=== PATIENT | male | born 1960 | race Caucasian/White ===

== ENCOUNTER 2016-11-03 10:04 | Inpatient (IN) | payer BC ==
[~2016-11-03] VITALS: Ht 182.9 cm; Wt 74.8 kg
[2016-11-03 10:04] VITALS: BP_SYST 156
[2016-11-03] MEDS ORDERED: NITROGLYCERIN 0.4 MG TAB.SUBL SL ONE ×2 (10:30→12:17)
[2016-11-03 10:44] LABS: BASOPHILS % (AUTO) 0.3 % (0.0-2.0); EOSINOPHILS # (AUTO) 0.1 K/uL (0.0-0.4); EOSINOPHILS % (AUTO) 0.5 % (0.0-4.0); HEMATOCRIT 42.8 % (36-54); HEMOGLOBIN 14.6 g/dL (14.0-18.0); LYMPHOCYTES # (AUTO) 1.6 K/uL (1.0-5.5); LYMPHOCYTES % (AUTO) 13.2 % (20.5-51.5); MEAN CORPUSCULAR HEMOGLOBIN 34 pg (27-31); MEAN CORPUSCULAR HGB CONC 34 % (32-36); MEAN CORPUSCULAR VOLUME 100 fL (79.0-98.0); MONOCYTES # (AUTO) 0.5 K/uL (0.0-1.0); MONOCYTES % (AUTO) 4.2 % (1.7-9.3); NEUTROPHILS # (AUTO) 9.6 K/uL (1.8-7.7); NEUTROPHILS % (AUTO) 81.8 % (40.0-70.0); PLATELET COUNT (AUTO) 344 K/uL (130-430); RED CELL DISTRIBUTION WIDTH 11.6 % (9.0-15.0); WHITE BLOOD COUNT (AUTO) 11.8 K/uL (4.8-10.8)
[2016-11-03 10:51] LABS: CALCIUM 8.7 mg/dL (8.4-11.0); CREATININE 0.86 mg/dL (0.55-1.30); POTASSIUM 4.3 mmol/L (3.5-5.1)
[2016-11-03 11:05] LABS: BILIRUBIN,URINE NEGATIVE (NEGATIVE); BLOOD, URINE 2+ (NEGATIVE); CLARITY/URINE CLEAR (CLEAR); COLOR,URINE YELLOW (YELLOW); GLUCOSE,URINE NEGATIVE (NEGATIVE); KETONES,URINE TRACE (NEGATIVE); LEUKOCYTE ESTERASE ,URINE NEGATIVE (NEGATIVE); NITRITE, URINE NEGATIVE (NEGATIVE); PROTEIN URINE NEGATIVE (NEGATIVE); UROBILINOGEN,URINE 0.2 (0.2-1.0)
[2016-11-03 11:11] LABS: ALBUMIN 3.9 g/dL (3.4-4.8); TOTAL BILIRUBIN 0.3 mg/dL (0.0-1.0)
[2016-11-03 11:12] LABS: BACTERIA,URINE FEW /HPF (None Seen); MUCUS,URINE None Seen /LPF (None Seen); WBC,URINE NONE SEEN /HPF (0-3)
[2016-11-03] MEDS ORDERED: METO50TA7 PO (11:46)
[2016-11-03] MEDS ORDERED: CAT.1 PO (11:46)
[2016-11-03] MEDS: NITROGLYCERIN 0.4 MG TAB.SUBL SL PRN ×3 (12:09→20:44)
[2016-11-03 12:20] VITALS: BP_SYST 159
[2016-11-03 12:40] VITALS: BP_SYST 164
[2016-11-03] MEDS ORDERED: COMMUNICATION ORDER XX ONE (12:45)
[2016-11-03] MEDS ORDERED: ATORVASTATIN 20 MG TABLET PO ONE (13:00)
[2016-11-03] MEDS ORDERED: ENOXAPARIN SODIUM 80 MG/0.8 ML SYRINGE SUBCUT ONE (13:00)
[2016-11-03] MEDS ORDERED: ISOSORBIDE MONONITRATE 30 MG TAB.ER.24H PO ONE (13:00)
[2016-11-03] MEDS ORDERED: LISINOPRIL 10 MG TABLET (PRINIVIL) PO ONE (13:45)
[2016-11-03] MEDS ORDERED: ASPIRIN 325 MG TABLET (ECOTRIN) PO ONE (13:45)
[2016-11-03 13:54] LABS: CHOLESTEROL 200 mg/dL (<200); HDL CHOLESTEROL 63 mg/dL (>45); LDL CHOLESTEROL 126 mg/dL (<100); TRIGLYCERIDES 48 mg/dL (30-150)
[2016-11-03] MEDS ORDERED: LISINOPRIL 10 MG TABLET (PRINIVIL) PO SCH (14:00)
[2016-11-03] MEDS ORDERED: ACETAMINOPHEN 325 MG TABLET PO PRN (16:15)
[2016-11-03 16:20] VITALS: BP_SYST 150
[2016-11-03 17:04] LABS: PROTHROMBIN TIME 10.8 SECS (9.5-12.5)
[2016-11-03 20:00] VITALS: BP_SYST 111
[2016-11-03] MEDS ORDERED: ENOXAPARIN SODIUM 80 MG/0.8 ML SYRINGE SUBCUT SCH (21:00)
[2016-11-04] VITALS: BP_SYST 115
[2016-11-04] MEDS ORDERED: NACL 0.9% 1,000 ML IV SCH (05:00)
[2016-11-04] MEDS ORDERED: ASPIRIN 325 MG TABLET (ECOTRIN) PO SCH (09:00)
[2016-11-04] MEDS ORDERED: LISINOPRIL 10 MG TABLET (PRINIVIL) PO SCH (09:00)
[2016-11-04] MEDS ORDERED: METOPROLOL SUCCINATE 50 MG TAB.SR.24H (TOPROL XL) PO SCH (09:00)
[2016-11-04] MEDS ORDERED: ISOSORBIDE MONONITRATE 30 MG TAB.ER.24H PO SCH (09:00)
[2016-11-04] MEDS ORDERED: ATORVASTATIN 20 MG TABLET PO SCH (09:00)
== END 2016-11-04 07:00 | disposition short-term general hospital (02) | DRG 280 ==
LOC: SED 10:04 → STU 11:36
PROVIDERS: ADMIT Family Medicine; ATTEND Family Medicine
DX: I21.4 Non-ST elevation (NSTEMI) myocardial infarction (principal); I50.21 Acute systolic (congestive) heart failure; I10 Essential (primary) hypertension; F17.210 Nicotine dependence, cigarettes, uncomplicated; Z90.49 Acquired absence of other specified parts of digestive tract; Z71.6 Tobacco abuse counseling
CPT/HCPCS: 36415; 71010; 80053; 80061; 81000-TC; 84484; 85025; 85610-TC; 85730-TC; 93005; 93306; 99285; J1650

== ENCOUNTER 2018-04-29 11:16 | Emergency (ER) | payer BC ==
[~2018-04-29] VITALS: Ht 182.9 cm; Wt 77.1 kg
[~2018-04-29 11:16] MED LIST: CAT.1 PO; METO50TA7 PO
[2018-04-29 11:20] VITALS: BP_SYST 164
[2018-04-29 12:02] LABS: BASOPHILS # (AUTO) 0.1 K/uL (0.0-0.2); BASOPHILS % (AUTO) 0.5 % (0.0-2.0); EOSINOPHILS # (AUTO) 0.2 K/uL (0.0-0.4); EOSINOPHILS % (AUTO) 1.5 % (0.0-4.0); HEMATOCRIT 41.2 % (36-54); HEMOGLOBIN 14.3 g/dL (14.0-18.0); LYMPHOCYTES # (AUTO) 3.6 K/uL (1.0-5.5); LYMPHOCYTES % (AUTO) 32.8 % (20.5-51.5); MEAN CORPUSCULAR HEMOGLOBIN 34 pg (27-31); MEAN CORPUSCULAR HGB CONC 35 % (32-36); MEAN CORPUSCULAR VOLUME 98 fL (79.0-98.0); MONOCYTES # (AUTO) 0.8 K/uL (0.0-1.0); MONOCYTES % (AUTO) 7.4 % (1.7-9.3); NEUTROPHILS # (AUTO) 6.4 K/uL (1.8-7.7); NEUTROPHILS % (AUTO) 57.8 % (40.0-70.0); PLATELET COUNT (AUTO) 352 K/uL (130-430); RED CELL DISTRIBUTION WIDTH 11.8 % (9.0-15.0); WHITE BLOOD COUNT (AUTO) 11.1 K/uL (4.8-10.8)
[2018-04-29 12:06] LABS: CALCIUM 9.2 mg/dL (8.4-11.0); CREATININE 0.77 mg/dL (0.55-1.30); POTASSIUM 4.5 mmol/L (3.5-5.1)
[2018-04-29 12:08] LABS: PROTHROMBIN TIME 9.8 SECS (9.5-12.5)
[2018-04-29 12:11] LABS: ALBUMIN 4.2 g/dL (3.4-4.8); TOTAL BILIRUBIN 0.6 mg/dL (0.0-1.0)
[2018-04-29 13:47] VITALS: BP_SYST 151
== END 2018-04-29 13:46 | disposition home or self-care (01) ==
LOC: SED 11:16
DX: M25.512 Pain in left shoulder (principal); R07.89 Other chest pain; R19.7 Diarrhea, unspecified; I10 Essential (primary) hypertension
CPT/HCPCS: 36415; 71045; 73030; 80053; 84484; 85025; 85610-TC; 85730-TC; 93005; 99284

== ENCOUNTER 2018-08-10 11:12 | Observation (INO) | payer BC ==
[~2018-08-10] VITALS: Ht 182.9 cm; Wt 90.7 kg
[2018-08-10 11:21] VITALS: BP_SYST 178
[2018-08-10 12:05] LABS: BASOPHILS # (AUTO) 0.1 K/uL (0.0-0.2); BASOPHILS % (AUTO) 0.5 % (0.0-2.0); EOSINOPHILS # (AUTO) 0.1 K/uL (0.0-0.4); EOSINOPHILS % (AUTO) 1.4 % (0.0-4.0); HEMATOCRIT 42.5 % (36-54); HEMOGLOBIN 14.6 g/dL (14.0-18.0); LYMPHOCYTES % (AUTO) 29.9 % (20.5-51.5); MEAN CORPUSCULAR HEMOGLOBIN 35 pg (27-31); MEAN CORPUSCULAR HGB CONC 34 % (32-36); MEAN CORPUSCULAR VOLUME 100 fL (79.0-98.0); MONOCYTES # (AUTO) 0.8 K/uL (0.0-1.0); MONOCYTES % (AUTO) 8.2 % (1.7-9.3); NEUTROPHILS # (AUTO) 6.1 K/uL (1.8-7.7); PLATELET COUNT (AUTO) 326 K/uL (130-430); RED BLOOD CELL COUNT(AUTO) 4.24 MIL/uL (4.2-6.2); RED CELL DISTRIBUTION WIDTH 12.6 % (9.0-15.0); WHITE BLOOD COUNT (AUTO) 10.2 K/uL (4.8-10.8)
[2018-08-10 12:21] LABS: CALCIUM 9.4 mg/dL (8.4-11.0); CREATININE 0.8 mg/dL (0.55-1.30); POTASSIUM 4.5 mmol/L (3.5-5.1)
[2018-08-10 12:25] LABS: INR 0.9 (0.80-1.20); PROTHROMBIN TIME 9.7 SECS (9.5-12.5)
[2018-08-10] MEDS ORDERED: NITROGLYCERIN 1 INCH (GM) OINT. TP ONE (12:30)
[2018-08-10 12:32] LABS: TOTAL BILIRUBIN 0.4 mg/dL (0.0-1.0)
[2018-08-10] MEDS ORDERED: TICA90TA PO (12:57)
[2018-08-10] MEDS ORDERED: ASPI-1153 PO (12:57)
[2018-08-10] MEDS ORDERED: LISI-600 PO (12:57)
[2018-08-10 14:29] VITALS: BP_SYST 156
[2018-08-10] MEDS ORDERED: MORPHINE 4 MG/ML INJ. SYRINGE IVP PRN (16:15)
[2018-08-10] MEDS ORDERED: NITROGLYCERIN 0.4 MG TAB.SUBL SL PRN (16:15)
[2018-08-10] MEDS ORDERED: cloNIDine HCL 0.1 MG TABLET PO PRN (16:15)
[2018-08-10 20:20] VITALS: BP_SYST 141
[2018-08-10] MEDS: BRILINTA 60 MG PO SCH (21:00)
[2018-08-10] MEDS: DOXYCYCLINE HYCLATE 100 MG CAPSULE PO SCH (21:09)
[2018-08-11] VITALS: BP_SYST 127
[2018-08-11 06:34] LABS: BASOPHILS # (AUTO) 0.1 K/uL (0.0-0.2); BASOPHILS % (AUTO) 0.6 % (0.0-2.0); EOSINOPHILS # (AUTO) 0.2 K/uL (0.0-0.4); EOSINOPHILS % (AUTO) 2.2 % (0.0-4.0); HEMATOCRIT 39.9 % (36-54); HEMOGLOBIN 13.6 g/dL (14.0-18.0); LYMPHOCYTES % (AUTO) 29.1 % (20.5-51.5); MEAN CORPUSCULAR HEMOGLOBIN 34 pg (27-31); MEAN CORPUSCULAR HGB CONC 34 % (32-36); MEAN CORPUSCULAR VOLUME 100 fL (79.0-98.0); MONOCYTES # (AUTO) 0.9 K/uL (0.0-1.0); MONOCYTES % (AUTO) 8.5 % (1.7-9.3); NEUTROPHILS # (AUTO) 6.2 K/uL (1.8-7.7); NEUTROPHILS % (AUTO) 59.6 % (40.0-70.0); PLATELET COUNT (AUTO) 314 K/uL (130-430); RED BLOOD CELL COUNT(AUTO) 3.99 MIL/uL (4.2-6.2); RED CELL DISTRIBUTION WIDTH 12.6 % (9.0-15.0); WHITE BLOOD COUNT (AUTO) 10.4 K/uL (4.8-10.8)
[2018-08-11 07:13] LABS: ALBUMIN 3.4 g/dL (3.4-4.8); CALCIUM 8.8 mg/dL (8.4-11.0); CREATININE 0.74 mg/dL (0.55-1.30); POTASSIUM 4.1 mmol/L (3.5-5.1); THYROID STIMULATING HORMONE 1.64 uIu/mL (0.34-4.82); TOTAL BILIRUBIN 0.6 mg/dL (0.0-1.0)
[2018-08-11 08:15] VITALS: BP_SYST 131
[2018-08-11] MEDS ORDERED: ASPIRIN 81 MG TABLET(ECOTRIN) PO SCH (09:00)
[2018-08-11] MEDS ORDERED: NON-FORMULARY MEDICATION (Ticagrelor (Brilinta) 90 MG) PO SCH (09:00)
[2018-08-11] MEDS ORDERED: LISINOPRIL 20 MG TABLET PO SCH (09:00)
[2018-08-11] MEDS ORDERED: METOPROLOL SUCCINATE 50 MG TAB.SR.24H (TOPROL XL) PO SCH (09:00)
[2018-08-11] MEDS: DOXYCYCLINE HYCLATE 100 MG CAPSULE PO SCH (09:03)
[2018-08-11] MEDS ORDERED: DOXY100C2 PO (09:31)
[2018-08-11 10:02] VITALS: BP_SYST 124
[2018-08-11] MEDS: BRILINTA 60 MG PO SCH (10:11)
[2018-08-11 10:56] VITALS: BP_SYST 135
== END 2018-08-11 10:23 | disposition home or self-care (01) ==
LOC: SED 11:12 → STU 14:06
PROVIDERS: ADMIT Internal Medicine Cardiovascular Disease; ATTEND Internal Medicine Cardiovascular Disease
DX: R07.89 Other chest pain (principal); J20.9 Acute bronchitis, unspecified; J02.9 Acute pharyngitis, unspecified; I25.10 Atherosclerotic heart disease of native coronary artery without angina pectoris; E78.5 Hyperlipidemia, unspecified; I10 Essential (primary) hypertension; F17.210 Nicotine dependence, cigarettes, uncomplicated; Z95.5 Presence of coronary angioplasty implant and graft; Z82.0 Family history of epilepsy and other diseases of the nervous system; I73.9 Peripheral vascular disease, unspecified; I25.2 Old myocardial infarction; Z79.82 Long term (current) use of aspirin
CPT/HCPCS: 36415 ×2; 71045; 80053 ×2; 80061; 82550; 84443; 84484 ×2; 85025 ×2; 85610; 85730; 93005; 93017; 99285; G0378 ×2

== ENCOUNTER 2019-06-15 10:08 | Emergency (ER) | payer BC ==
[~2019-06-15] VITALS: Ht 182.9 cm; Wt 72.6 kg
[~2019-06-15 10:08] MED LIST changes: +ASPI-1153 PO; +DOXY100C2 PO; +LISI-600 PO; +TICA90TA PO
[2019-06-15 10:28] VITALS: BP_SYST 166
[2019-06-15] MEDS: ONDANSETRON HCL 4 MG/2 ML VIAL IVP ONE (11:15)
[2019-06-15] MEDS: NACL 0.9% 1,000 ML IV ONE (11:18)
[2019-06-15 11:35] LABS: ANION GAP 7 (5-15); CALCIUM 8.4 mg/dL (8.4-11.0); CHLORIDE 99 mmol/L (98-107); CREATININE 0.81 mg/dL (0.55-1.30); GLUCOSE 96 mg/dL (70-99); POTASSIUM 4.6 mmol/L (3.5-5.1); SODIUM SERUM 134 mmol/L (136-145); UREA NITROGEN, BLOOD 11 mg/dL (8-21)
[2019-06-15 11:36] LABS: BASOPHILS % (AUTO) 0.3 % (0.0-2.0); EOSINOPHILS % (AUTO) 0.3 % (0.0-4.0); GFR AFRICAN AMERICAN 125 mL/min (>90); HEMATOCRIT 39.5 % (36-54); HEMOGLOBIN 13.4 g/dL (14.0-18.0); LYMPHOCYTES # (AUTO) 2.3 K/uL (1.0-5.5); LYMPHOCYTES % (AUTO) 30.6 % (20.5-51.5); MEAN CORPUSCULAR HEMOGLOBIN 33 pg (27-31); MEAN CORPUSCULAR HGB CONC 34 % (32-36); MEAN CORPUSCULAR VOLUME 98 fL (79.0-98.0); MONOCYTES # (AUTO) 0.9 K/uL (0.0-1.0); MONOCYTES % (AUTO) 12.1 % (1.7-9.3); NEUTROPHILS # (AUTO) 4.2 K/uL (1.8-7.7); NEUTROPHILS % (AUTO) 56.7 % (40.0-70.0); PLATELET COUNT (AUTO) 294 K/uL (130-430); RED BLOOD CELL COUNT(AUTO) 4.03 MIL/uL (4.2-6.2); RED CELL DISTRIBUTION WIDTH 12.6 % (9.0-15.0); WHITE BLOOD COUNT (AUTO) 7.4 K/uL (4.8-10.8)
[2019-06-15 11:41] LABS: ALANINE AMINOTRANSFERASE 69 U/L (12-78); ALBUMIN 3.3 g/dL (3.4-4.8); ASPARTATE AMINOTRANSFERASE 46 U/L (10-37); TOTAL BILIRUBIN 0.4 mg/dL (0.0-1.0)
[2019-06-15 13:00] VITALS: BP_SYST 134
== END 2019-06-15 13:00 | disposition home or self-care (01) ==
LOC: SED 10:08
DX: B34.9 Viral infection, unspecified (principal); R55 Syncope and collapse; R11.0 Nausea; R53.1 Weakness; E86.0 Dehydration; E78.5 Hyperlipidemia, unspecified; J45.909 Unspecified asthma, uncomplicated; I10 Essential (primary) hypertension; F17.210 Nicotine dependence, cigarettes, uncomplicated; Z86.73 Personal history of transient ischemic attack (TIA), and cerebral infarction without residual deficits; Z79.82 Long term (current) use of aspirin; Z79.899 Other long term (current) drug therapy; Z71.6 Tobacco abuse counseling
CPT/HCPCS: 36415; 71045; 80053; 84484; 85025; 93005; 96361; 96374; 99285; J2405; J7030

== ENCOUNTER 2019-10-23 07:28 | Observation (INO) | payer BC ==
[~2019-10-23] VITALS: Ht 175.3 cm; Wt 70.3 kg
--- NOTE | 2019-10-23 07:28 | NUR ---
PLACED IN BED 8, TRIAGED AT BEDSIDE. 12 LEAD EKG IN PROGRESS
[2019-10-23 07:40] VITALS: BP_SYST 169
[2019-10-23] MEDS ORDERED: ASPIRIN 81 MG TAB.CHEW PO ONE (07:45)
--- NOTE | 2019-10-23 07:45 | NUR ---
DR. STEVE AT BEDSIDE
[2019-10-23 07:49] LABS: BASOPHILS # (AUTO) 0.1 K/uL (0.0-0.2); BASOPHILS % (AUTO) 0.6 % (0.0-2.0); EOSINOPHILS # (AUTO) 0.3 K/uL (0.0-0.4); EOSINOPHILS % (AUTO) 2.6 % (0.0-4.0); HEMATOCRIT 44.3 % (36-54); HEMOGLOBIN 15.1 g/dL (14.0-18.0); LYMPHOCYTES # (AUTO) 5.4 K/uL (1.0-5.5); LYMPHOCYTES % (AUTO) 44.7 % (20.5-51.5); MEAN CORPUSCULAR HEMOGLOBIN 33 pg (27-31); MEAN CORPUSCULAR HGB CONC 34 % (32-36); MEAN CORPUSCULAR VOLUME 97 fL (79.0-98.0); MONOCYTES # (AUTO) 0.9 K/uL (0.0-1.0); MONOCYTES % (AUTO) 7.7 % (1.7-9.3); NEUTROPHILS # (AUTO) 5.3 K/uL (1.8-7.7); NEUTROPHILS % (AUTO) 44.4 % (40.0-70.0); PLATELET COUNT (AUTO) 385 K/uL (130-430); RED BLOOD CELL COUNT(AUTO) 4.56 MIL/uL (4.2-6.2); RED CELL DISTRIBUTION WIDTH 11.9 % (9.0-15.0)
[2019-10-23 08:05] LABS: CALCIUM 9.3 mg/dL (8.4-11.0); CREATININE 0.89 mg/dL (0.55-1.30); POTASSIUM 3.9 mmol/L (3.5-5.1)
[2019-10-23 08:12] LABS: ALBUMIN 3.7 g/dL (3.4-4.8); TOTAL BILIRUBIN 0.4 mg/dL (0.0-1.0)
[2019-10-23] MEDS ORDERED: LABETALOL 100 MG/ 20ML VIAL IVP ONE (08:15)
[2019-10-23] MEDS ORDERED: NACL 0.9% 1,000 ML IV ONE (08:15)
--- NOTE | 2019-10-23 09:48 | NUR ---
EKG REPEATED. PT IS STABLE AND COMFORTABLE. PT STATED HE WAS GETTING DIZZY AND HIGH BLOOD PRESSURE AT HOME THIS MORNING. 2ND TROPONIN HAS BEEN COLLECTED.
--- NOTE | 2019-10-23 11:10 | NUR ---
B/P IS TRENDING HIGHER AND MD WANT S TO CALL PMD FOR POSSIBLE ADMIT. PT REMAINS STABLE AND COMFORTABLE. NO S/S OF DISTRESS NOTED.
--- NOTE | 2019-10-23 12:08 | NUR ---
MD HARVEY HAS SPOKEN TO MD LANGFORD AND OBTAINED ADMIT ORDER. NOTED.
[2019-10-23] MEDS ORDERED: LISINOPRIL 10 MG TABLET (PRINIVIL) PO ONE (12:15)
[2019-10-23] MEDS ORDERED: ASA81 PO (12:26)
[2019-10-23] MEDS ORDERED: LISI-600 PO (12:26)
[2019-10-23] MEDS ORDERED: TICA90TA PO (12:26)
[2019-10-23] MEDS ORDERED: METO50TA7 PO (12:26)
--- NOTE | 2019-10-23 20:08 | NUR ---
pt in [facility] with side rails down. bathroom privilages.pt alert and oriented. Able to make all needs known. IV saline lock inplace. C/O slight headache 05/24. No distress, VSS with elevated blood pressure, much improved since AM.
[2019-10-23] MEDS ORDERED: ACETAMINOPHEN 500 MG TABLET PO ONE (20:30)
[2019-10-23] MEDS ORDERED: TICAGRELOR 90 MG PO SCH (21:00)
[2019-10-23] MEDS: BRILINTA 90 MG PO SCH (21:00)
[2019-10-23 21:03] VITALS: BP_SYST 154
--- NOTE | 2019-10-23 21:03 | NUR ---
ADMISSION NOTE: Received patient from ER via kim, received report from PAM PICKARD. Patient admitted OBSERVATION with diagnosis of CHEST PAIN. Patient oriented to hospital routine, call light, toileting and safety-patient verbalized understanding.
--- NOTE | 2019-10-23 21:12 | NUR ---
Patient will be admitted to care of [facility]. Admitted to Tele unit. Will go to room 108A. Belongings list completed. Complete and up to date summary report printed. SBAR report to be given at bedside with opportunity for questions.
--- NOTE | 2019-10-23 23:15 | NUR ---
Home meds: Patient in possession of home medications: x1 bottle Aspirin EC 81mg tablet, x1 bottle Atorvastin 10 mg tablet, x1 bottle Metoprolol succ ER 50 mg tablet, x1 bottle Lisinopril 20 mg tablet, and x1 tablet Brilinta 90 mg tablet. Patient was informed that her medications will be kept by pharmacy and returned to his upon discharge from the hospital. Home medications were placed in signed Patient's Own Medication Envelope. Envelope with home meds stored in [facility] medication room, awaiting to be sent to pharmacy once open. Will endorse to emilee PICKARD.
[2019-10-24] VITALS: BP_SYST 147
--- NOTE | 2019-10-24 02:00 | NUR ---
Rounds: Patient is in bed sleeping. No acute distress. Breathing is even and nonlabored on room air. Call light is with patient. Safety and fall precautions in place. Will continue monitoring
--- NOTE | 2019-10-24 04:09 | NUR ---
Rounds: Patient sleeping in bed. No signs of acute distress. Even and nonlabored respirations on room air. Call light is with patient. Safety and fall precautions in place. Will continue to monitor.
--- NOTE | 2019-10-24 06:31 | NUR ---
Closing Note: Patient in bed resting. No acute distress. Breathing is even and nonlabored on room air. IV site is patent and intact, saline locked. All needs met. Bed is locked at lowest position. Side rails up x2. Call light is with patient. Safety and fall precautions in place. Will endorse care to dayshift RN.
[2019-10-24 06:40] LABS: ALBUMIN 3.1 g/dL (3.4-4.8); CALCIUM 8.9 mg/dL (8.4-11.0); CREATININE 0.82 mg/dL (0.55-1.30); POTASSIUM 3.8 mmol/L (3.5-5.1); TOTAL BILIRUBIN 0.4 mg/dL (0.0-1.0)
--- NOTE | 2019-10-24 07:20 | NUR ---
INITIAL NOTE RECEIVED PT IN BED, NO S/S OF DISTRESS OR SOB NOTED, PT HAS C/O HEADACHE 06/21, WILL PAGE DR LANGFORD FOR ORDERS FOR TYLENOL PRN. PT AAOX4, VERBAL. IV CATHETER PATENT, NO SIGNS OF INFECTION OR INFILTRATION NOTED, SALINE LOCK. BED AT LOWEST POSITION, CALL LIGHT WITHIN REACH, WILL CONTINUE TO MONITOR PT FOR ANY CHANGES, FALL AND SAFETY PRECAUTIONS IN PLACE.
--- NOTE | 2019-10-24 07:21 | NUR ---
MD CALL DR PRIMITIVO KENDRICK, AWAITING CALL BACK FOR ORDERS FOR TYLENOL PRN FOR HEADACHE.
[2019-10-24] MEDS ORDERED: ACETAMINOPHEN 325 MG TABLET PO PRN (07:30)
[2019-10-24] MEDS ORDERED: ACETAMINOPHEN 325 MG TABLET ONE (08:02)
[2019-10-24 08:40] VITALS: BP_SYST 160
[2019-10-24] MEDS: BRILINTA 90 MG PO SCH (08:50)
[2019-10-24] MEDS ORDERED: ASPIRIN 81 MG TAB.CHEW PO SCH (09:00)
[2019-10-24] MEDS ORDERED: ATORVASTATIN 20 MG TABLET PO SCH (09:00)
[2019-10-24] MEDS ORDERED: METOPROLOL SUCCINATE 50 MG TAB.SR.24H (TOPROL XL) PO SCH (09:00)
[2019-10-24] MEDS ORDERED: LISINOPRIL 20 MG TABLET PO ONE (09:15)
--- NOTE | 2019-10-24 10:31 | NUR ---
ROUNDS PT IN BED, NO S/S OF DISTRESS OR SOB NOTED, PT HAS NO C/O PAIN AT THIS TIME, PT IN STABLE CONDITION. PT RESTING COMFORTABLY, WILL CONTINUE TO MONITOR PT FOR ANY CHANGES. PT WATCHING TV.
--- NOTE | 2019-10-24 11:34 | NUR ---
CALL DR PRIMITIVO KENDRICK, AWAITING CALL BACK TO LET HIM KNOW THAT PATIENT'S BP IS 183/77, 64, PT ASYMPTOMATIC. PT AWAITING D/C. Addendum: 10/24/19 at 1139 by Joselin Marie RN PER RECHECK BP AND THEN D/C PT HOME TODAY
[2019-10-24 12:30] VITALS: BP_SYST 183
--- NOTE | 2019-10-24 14:25 | NUR ---
ROUNDS PT IN BED, NO S/S OF DISTRESS OR SOB NOTED, PT HAS NO C/O PAIN AT THIS TIME, PT IN STABLE CONDITION. PT RESTING COMFORTABLY, WILL CONTINUE TO MONITOR PT FOR ANY CHANGES. PT RESTING COMFORTABLY.
[2019-10-24 16:15] VITALS: BP_SYST 154
[2019-10-24 16:30] VITALS: BP_SYST 154
--- NOTE | 2019-10-24 16:55 | NUR ---
D/C Patient Patient given medication reconciliation form and D/C instructions. Exit Care provided. Patient verbalized understanding. MD discussed with patient the results and treatment provided. Ambulatory with steady gait for discharge to home. Patient in stable condition, ID band removed. IV catheter removed, intact and dressing applied, no active bleeding. Rx of metoprolol given. Patient educated on pain management. All belongings sent with patient.
[2019-10-25] MEDS ORDERED: LISINOPRIL 20 MG TABLET PO SCH (09:00)
== END 2019-10-24 16:55 | disposition home or self-care (01) ==
LOC: SED 07:28 → STU 12:02 → INTOOBSV 12:12 → OBSVTOIN 12:12 → STU 20:50
PROVIDERS: ADMIT Internal Medicine Cardiovascular Disease; ATTEND Internal Medicine Cardiovascular Disease
DX: I10 Essential (primary) hypertension (principal); I25.10 Atherosclerotic heart disease of native coronary artery without angina pectoris; I25.2 Old myocardial infarction; I73.9 Peripheral vascular disease, unspecified; E78.5 Hyperlipidemia, unspecified; F17.210 Nicotine dependence, cigarettes, uncomplicated; Z98.62 Peripheral vascular angioplasty status; Z95.5 Presence of coronary angioplasty implant and graft; Z79.82 Long term (current) use of aspirin; Z79.899 Other long term (current) drug therapy
CPT/HCPCS: 36415 ×2; 70450; 71045; 80053 ×2; 80061; 82550; 83880; 84484 ×2; 85025; 93005 ×2; 99285; G0378; J7030; J3490

== ENCOUNTER 2021-12-10 11:03 | Emergency (ER) | payer BC ==
[~2021-12-10] VITALS: Ht 172.7 cm; Wt 65.8 kg
[~2021-12-10 11:03] MED LIST changes: -ASPI-1153 PO; +ASPI-1393 PO; -CAT.1 PO; -DOXY100C2 PO; -LISI-600 PO; +LISI20TA30 PO; -METO50TA7 PO
[2021-12-10 11:07] VITALS: BP_SYST 126
[2021-12-10 11:50] LABS: BASOPHILS # (AUTO) 0.1 K/uL (0.0-0.2); BASOPHILS % (AUTO) 0.8 % (0.0-2.0); EOSINOPHILS # (AUTO) 0.3 K/uL (0.0-0.4); EOSINOPHILS % (AUTO) 3.8 % (0.0-4.0); HEMATOCRIT 36.4 % (36-54); HEMOGLOBIN 13.1 g/dL (14.0-18.0); LYMPHOCYTES # (AUTO) 2.5 K/uL (1.0-5.5); LYMPHOCYTES % (AUTO) 31.1 % (20.5-51.5); MEAN CORPUSCULAR HEMOGLOBIN 33 pg (27-31); MEAN CORPUSCULAR HGB CONC 36 % (32-36); MEAN CORPUSCULAR VOLUME 91 fL (79.0-98.0); MONOCYTES # (AUTO) 0.8 K/uL (0.0-1.0); MONOCYTES % (AUTO) 10.3 % (1.7-9.3); NEUTROPHILS # (AUTO) 4.4 K/uL (1.8-7.7); PLATELET COUNT (AUTO) 308 K/uL (130-430); RED BLOOD CELL COUNT(AUTO) 4.01 MIL/uL (4.2-6.2); RED CELL DISTRIBUTION WIDTH 12.4 % (9.0-15.0); WHITE BLOOD COUNT (AUTO) 8.2 K/uL (4.8-10.8)
[2021-12-10 12:10] LABS: ANION GAP 6 (5-15); CALCIUM 8.7 mg/dL (8.4-11.0); CHLORIDE 89 mmol/L (98-107); CREATININE 0.83 mg/dL (0.55-1.30); GLUCOSE 117 mg/dL (70-99); POTASSIUM 3.7 mmol/L (3.5-5.1); SODIUM SERUM 125 mmol/L (136-145); UREA NITROGEN, BLOOD 16 mg/dL (8-21)
[2021-12-10 12:11] LABS: GFR AFRICAN AMERICAN 120 mL/min (>90)
[2021-12-10 12:22] LABS: ALANINE AMINOTRANSFERASE 31 U/L (12-78); ALBUMIN 3.3 g/dL (3.4-4.8); ASPARTATE AMINOTRANSFERASE 20 U/L (10-37); TOTAL BILIRUBIN 0.6 mg/dL (0.0-1.0)
--- NOTE | 2021-12-10 13:17 | NUR ---
PT WISHES TO SIGN OUT AMA. MD MALDONADO AT BEDSIDE EXPLAINING UNKNOWN RISKS. PT HAS CARDIAC HX. PT STILL WISHES TO SIGN OUT AMA, STATES HAS APPOINTMENT WITH [facility] [employer] TOMORROW. PT SIGNED AMA FORM. VSS. NAD NOTED. AAOX4. ABLE TO AMBULATE INDEPENDENTLY. NO IV ACCESS. WRIST BAND REMOVED. END OF CARE.
[2021-12-10 13:22] VITALS: BP_SYST 132
== END 2021-12-10 13:22 | disposition left against medical advice (07) ==
LOC: SED 11:03
DX: R07.89 Other chest pain (principal); J45.909 Unspecified asthma, uncomplicated; I10 Essential (primary) hypertension; E78.5 Hyperlipidemia, unspecified; Z79.899 Other long term (current) drug therapy
CPT/HCPCS: 36415; 71045; 80053; 84484; 85025; 99284